=== PATIENT | male | born 1940 | race Caucasian/White ===

== ENCOUNTER → 2016-12-29 | Day surgery (SDC) | payer MEDICARE, BC ==
[~2016-12-29] VITALS: Ht 177.8 cm; Wt 77.1 kg
[~2016-12-29] MED LIST: ASPI-COR81 M1 PO; CLARITIN10 MG PO; FLONASE0.05 MG/AC NS; HYDRODIURIL25 MG PO; KLOR-CON M2020 MEQ PO; LISINOPRIL10 MG PO; SIMVASTATIN20 MG PO
--- NOTE | ~2016-12-29 | O ---
[place], [place] OPERATIVE NOTE NAME: BUSHRACONOR Brenton UNIT #: [id number] ROOM: DOCTOR: SAHRA NOE MD BIRTHDATE: [birth year] DATE: 12/29/16 GASTROENDOSCOPIC REPORT HISTORY OF PRESENT ILLNESS: A 76-year-old patient who presented with chief complaint of history of colon polyp, change in bowel habit, undergoing investigation. ALLERGIES: IODINE. PAST MEDICAL HISTORY: Hypertension, hypercholesterolemia. PAST SURGICAL HISTORY: Right inguinal hernia repair. PROCEDURE: Today's procedure part of investigation is colonoscopy plus polypectomy x 2. PREMEDICATION: Versed and Diprivan. SCOPE: Olympus forward viewed colonoscope 10L video. REPORT: After putting the patient in the left lateral position and after application of lubricant to rectal pouch and digital examination, the scope was introduced. Thereafter, under direct visualization, I advanced through the length of colon without difficulty. Base of the cecum explored, appendiceal orifice identified, and ileocecal valve was defined. Scope was gradually withdrawn from ascending, transverse, descending colon and evidence of severe diverticulosis, coli throughout the length of colon appreciated, sessile polypoid lesion and the hepatic flexure. Sessile polypoid lesion, rectal pouch with piecemeal polypectomy removed. The patient extubated, tolerated procedure well. IMPRESSION: Diverticulosis coli of severe degree. Sessile polypoid lesion, hepatic flexure and rectal pouch, status post piecemeal polypectomy. PLAN AND DISCUSSION: High fiber fruit diet. ACTIVITY: Ad kailash. FOLLOWUP: Routinely with you in office, p.r.n. visit with us in GI Clinic. [place], [place] OPERATIVE NOTE NAME: BUSHRACONOR Brenton UNIT #: [id number] ROOM: DOCTOR: SAHRA NOE MD BIRTHDATE: [birth year] SAHRA NOE MD CM:OPRECORD:OPERATIVE NOTE 1019 [id number] SAHRA NOE MD 01/03/17 0905 CHRIS [email or web address]
--- NOTE | ~2016-12-29 | OP ---
[place], [place] OUTPATIENT NOTE NAME: CONOR TOMLINSON Brenton UNIT #: [id number] ROOM: DOCTOR: SAHRA NOE MD BIRTHDATE: [birth year] DATE: 12/29/16 GASTROENDOSCOPIC REPORT HISTORY OF PRESENT ILLNESS: A 76-year-old patient who presented with chief complaint of history of colon polyp, change in bowel habit, undergoing investigation. ALLERGIES: IODINE. PAST MEDICAL HISTORY: Hypertension, hypercholesterolemia. PAST SURGICAL HISTORY: Right inguinal hernia repair. PROCEDURE: Today's procedure part of investigation is colonoscopy plus polypectomy x 2. PREMEDICATION: Versed and Diprivan. SCOPE: Olympus forward viewed colonoscope 10L video. REPORT: After putting the patient in the left lateral position and after application of lubricant to rectal pouch and digital examination, the scope was introduced. Thereafter, under direct visualization, I advanced through the length of colon without difficulty. Base of the cecum explored, appendiceal orifice identified, and ileocecal valve was defined. Scope was gradually withdrawn from ascending, transverse, descending colon and evidence of severe diverticulosis, coli throughout the length of colon appreciated, sessile polypoid lesion and the hepatic flexure. Sessile polypoid lesion, rectal pouch with piecemeal polypectomy removed. The patient extubated, tolerated procedure well. IMPRESSION: Diverticulosis coli of severe degree. Sessile polypoid lesion, hepatic flexure and rectal pouch, status post piecemeal polypectomy. PLAN AND DISCUSSION: High fiber fruit diet. ACTIVITY: Ad kailash. FOLLOWUP: Routinely with you in office, p.r.n. visit with us in GI Clinic. [place], [place] OUTPATIENT NOTE NAME: YOLANDACONOR MUÑOZ UNIT #: [id number] ROOM: DOCTOR: SAHRA NOE MD BIRTHDATE: [birth year] SAHRA NOE MD CM:OUTNOTE:OUTPATIENT NOTE 1019 1019 SAHRA NOE MD 01/03/17 0905 CHRIS [email or web address]
[2016-12-29 09:10] VITALS: BP 127/90
[2016-12-29 10:16] VITALS: BP 112/66
[2016-12-29 10:31] VITALS: BP 126/70
[2016-12-29 10:46] VITALS: BP 142/82
== END | disposition home or self-care (01) ==
LOC: SDC 12-27 08:00
DX: D12.8 Benign neoplasm of rectum (principal); K63.5 Polyp of colon; I10 Essential (primary) hypertension; E78.00 Pure hypercholesterolemia, unspecified; Z98.890 Other specified postprocedural states; Z82.49 Family history of ischemic heart disease and other diseases of the circulatory system

== ENCOUNTER 2017-09-06 15:17 | Inpatient (IN) | payer MEDICARE, BC ==
[2017-09-06] VITALS (16 sets, daily range): BP systolic 88–119; BP diastolic 50–72
[~2017-09-06] VITALS: Ht 180.3 cm; Wt 74.9 kg
--- NOTE | ~2017-09-06 | CON ---
[place], [place] REPORT OF CONSULTATION NAME: CONOR TOMLINSON UNIT #: [id number] ROOM: [facility] DOCTOR: JD BAUTISTA,ANNE BIRTHDATE: [birth year] DOS: 09/06/2017 REASON FOR CONSULTATION: Atrial fibrillation. CLINICAL HISTORY: The patient is a 77-year-old gentleman with history of hypertension, presented to the Emergency Room with heart palpitations and noted to be in atrial fibrillation in the Emergency Room and was treated appropriately and has been admitted to the hospital and Cardiology consult for further recommendations. Again, the patient presented to the Emergency Room for heart palpitations, which started about an hour before coming to the Emergency Room. He had similar episode several months ago, but resolved after 1 hour. This time it persisted over 1 hour and he came to the Emergency Room. He denies any associated nausea, dizziness or syncope, no diaphoresis. No chest pain, palpitations. No PND, no orthopnea. He does not drink excessive caffeine at home. No fever or chills. No hemoptysis. No hematuria or dysuria. No headache. No blurred vision or double vision. REVIEW OF SYSTEMS: Review of the 8 systems negative except as mentioned above. PAST MEDICAL HISTORY: 1. Hypertension. 2. Dyslipidemia. 3. Prediabetes. PAST SURGICAL HISTORY: Tonsillectomy and hernia repair. SOCIAL HISTORY: The patient drinks social alcohol, but does not use illicit drugs, does not smoke. FAMILY HISTORY: Father at the age of 80, had congestive heart failure and mouth cancer. Mother at the age of 93. ALLERGIES: THE PATIENT IS ALLERGIC TO IVP DYE. HOME MEDICATIONS: Reviewed. PHYSICAL EXAMINATION: VITAL SIGNS: Blood pressure 126/77, pulse 66, respiratory rate was 15, weight 74.9 kilos. BMI 23. GENERAL: Alert, comfortable, in no acute distress. HEAD AND NECK: Neck supple, no distended neck veins, no carotid bruit. Tongue was moist and pharynx was clear. CHEST: Symmetrical, nontender. LUNGS: Clear to auscultation bilaterally. HEART: Regular rhythm, no S3, no palpable thrills. Grade 1/6 systolic murmur. ABDOMEN: Benign, nontender. Bowel sounds normal. EXTREMITIES: Showed no edema. Distal pulses are palpable. SKIN: Warm and dry. No cyanosis, no clubbing. RECTAL: Deferred. GENITOURINARY: Deferred. [place], [place] REPORT OF CONSULTATION NAME: CONOR TOMLINSON UNIT #: [id number] ROOM: [facility] DOCTOR: JD BAUTISTA,ANNE BIRTHDATE: [birth year] REVIEW OF THE DIAGNOSTIC TESTS: EKG showed atrial fibrillation with rapid ventricular rate. CBC, chemistry and thyroid function tests reviewed. IMAGING STUDIES: Reviewed as available. IMPRESSION: 1. New onset atrial fibrillation with rapid ventricular rate, CHADS2-VASC score of 3. Patient is currently in sinus rhythm and off IV Cardizem. 2. Hypertension, stable. 3. Dyslipidemia. RECOMMENDATIONS: The patient is clinically feeling better, has no signs of acute heart failure. Risks and benefits of anticoagulation therapy were discussed and given the options of Coumadin versus NOACs. He would like to Eliquis 5 mg twice a day. The patient understands bleeding risk as well as the cost of the medication. Check 2D echo for LV function, valvular function and also to rule out intracardiac thrombus. Lexiscan stress to rule out ischemia due to new-onset atrial fibrillation. Possible discharge in the next 24 hours. Patient can be transferred to step-down unit to telemetry floor. There is no family at bedside at the time of my examination. ANNE MILES MD CM:CONSTR:REPORT OF CONSULTATION 0058 09/08/17 0229 interface
--- NOTE | ~2017-09-06 | EKG ---
[place], [place] ELECTROCARDIOGRAM REPORT NAME: CONOR TOMLINSON UNIT #: [id number] ROOM: [facility] DOCTOR: JD BAUTISTA,ANNE BIRTHDATE: [birth year] DOS: 09/06/2017 TIME: 1530 hours. IMPRESSION: 1. Atrial fibrillation with rapid ventricular rate. 2. Nonspecific ST-T changes due to tachycardia. 3. Baseline artifacts. ANNE MILES MD CM:EKGRPT:ELECTROCARDIOGRAM REPORT 1405 1733 ANNE MILES MD
[~2017-09-06 15:17] MED LIST changes: +HYDR25T PO; -HYDRODIURIL25 MG PO
[2017-09-06 15:54] LABS: BASO # 0.1 10*3/uL (0.0-0.1); BASO % 0.6 % (0.0-1.0); EOS # 0.2 10*3/uL (0.0-0.4); EOS % 2.1 % (1.0-4.0); HEMATOCRIT 41.9 % (42.0-52.0); HEMOGLOBIN 14.4 g/dl (14.0-18.0); LYMPH # 1.4 10*3/uL (1.3-4.4); LYMPH % 16.7 % (27.0-41.0); MEAN CELL VOLUME 84.8 fl (80.0-94.0); MEAN CORPUSCULAR HGB 29.1 pg (27.0-31.0); MEAN CORPUSCULAR HGB CONC 34.4 g/dl (33.0-37.0); MEAN PLATELET VOLUME 9.2 fl (9.6-12.3); MONO # 0.8 10*3/uL (0.1-1.0); MONO % 9.2 % (3.0-9.0); NEUT # 5.9 10*3/uL (2.3-7.9); NEUT % 71.2 % (47.0-73.0); PLATELET COUNT AUTOMATED 210 10*3/uL (130-400); RED BLOOD COUNT 4.94 10*6/uL (4.50-5.90); RED CELL DISTRI WIDTH 12.6 % (0-14.5); WHITE BLOOD COUNT 8.2 10*3/uL (4.8-10.8)
[2017-09-06 16:11] LABS: ALBUMIN 3.8 gm/dl (3.1-4.5); ALKALINE PHOSPHATASE 58 U/L (45-117); BUN 18 mg/dl (7-24); CHLORIDE 107 mmol/L (98-107); CREATININE 0.97 mg/dL (0.70-1.30); LIPASE 157 U/L (73-393); POTASSIUM 3.3 mmol/L (3.5-5.1); SGOT/AST 14 IU/L (3-35); SODIUM 141 mmol/L (136-145); TOTAL PROTEIN 6.8 gm/dL (6.4-8.2)
[2017-09-06 16:12] LABS: ACT PARTIAL THROMBO TIME 24.2 SECONDS (20.8-31.5)
[2017-09-06 16:15] LABS: SGPT/ALT 21 U/L (12-78)
[2017-09-06 16:18] LABS: TROPONIN I < 0.015 ng/ml (<0.045)
[2017-09-06] MEDS ORDERED: OMEPRAZOLE40 MG PO (18:20)
[2017-09-06] MEDS ORDERED: SINGULAIR10 M1 PO (18:21)
[2017-09-06] MEDS ORDERED: FLONASE ALLERG9.9 ML NAS (18:21)
[2017-09-06] MEDS ORDERED: ZESTRIL10 MG PO (18:22)
[2017-09-06] MEDS ORDERED: KLOR-CON M2020 ME1 PO (18:23)
[2017-09-06] MEDS ORDERED: ZOCOR20 MG PO (18:23)
[2017-09-06] MEDS ORDERED: ASPIRIN ADULT L81 M1 PO (18:24)
[2017-09-07] VITALS: BP 105/69
[2017-09-07 04:00] VITALS: BP 98/50
[2017-09-07 05:36] LABS: ALBUMIN 3.2 gm/dl (3.1-4.5); ALKALINE PHOSPHATASE 48 U/L (45-117); BUN 17 mg/dl (7-24); CHLORIDE 108 mmol/L (98-107); CHOLESTEROL 128 mg/dL (<200); CREATININE 0.78 mg/dL (0.70-1.30); FREE T4 1.12 ng/dl (0.76-1.46); HDL CHOLESTEROL 65 mg/dl (40-60); LDL CHOLESTEROL 49 mg/dL (9-159); PHOSPHOROUS 3.3 mg/dL (2.5-4.9); POTASSIUM 3.9 mmol/L (3.5-5.1); SGOT/AST 14 IU/L (3-35); SGPT/ALT 19 U/L (12-78); SODIUM 143 mmol/L (136-145); TOTAL PROTEIN 5.8 gm/dL (6.4-8.2); TRIGLYCERIDES 70 mg/dl (<150); VLDL CHOLESTEROL 14 mg/dL (6-40)
[2017-09-07 06:10] LABS: BASO % 0.7 % (0.0-1.0); EOS # 0.3 10*3/uL (0.0-0.4); EOS % 5.2 % (1.0-4.0); HEMATOCRIT 39.5 % (42.0-52.0); LYMPH # 1.5 10*3/uL (1.3-4.4); LYMPH % 26.7 % (27.0-41.0); MEAN CORPUSCULAR HGB CONC 32.9 g/dl (33.0-37.0); MEAN PLATELET VOLUME 9.9 fl (9.6-12.3); MONO # 0.6 10*3/uL (0.1-1.0); MONO % 11.1 % (3.0-9.0); NEUT # 3.1 10*3/uL (2.3-7.9); NEUT % 55.9 % (47.0-73.0); PLATELET COUNT AUTOMATED 188 10*3/uL (130-400); RED BLOOD COUNT 4.49 10*6/uL (4.50-5.90); RED CELL DISTRI WIDTH 12.8 % (0-14.5); WHITE BLOOD COUNT 5.6 10*3/uL (4.8-10.8)
[2017-09-07 07:43] LABS: VITAMIN D, 25-HYDROXY 31.2 ng/mL (30-100)
[2017-09-07 08:00] VITALS: BP 126/77
[2017-09-07 16:00] VITALS: BP 137/78
[2017-09-07 20:00] VITALS: BP 130/82
[2017-09-08] VITALS: BP 118/88
[2017-09-08 04:00] VITALS: BP 135/77
[2017-09-08 08:00] VITALS: BP 160/79
[2017-09-08] MEDS ORDERED: METFORMIN HCL500 MG PO (10:38)
[2017-09-08 12:00] VITALS: BP 158/72
[2017-09-08] MEDS ORDERED: ELIQUIS5 M1 PO (13:46)
== END 2017-09-08 14:40 | disposition home or self-care (01) | DRG 309 ==
LOC: ED 15:17 → ICCU 16:26 → EDHOLD 16:26 → ICCU 17:21
PROVIDERS: Emergency Medicine; Internal Medicine
PROC: 4A02XM4 Measurement of Cardiac Total Activity, External Approach (ICD-10-PCS; principal; 2017-09-07)
PROC: 3E073KZ Introduction of Other Diagnostic Substance into Coronary Artery, Percutaneous Approach (ICD-10-PCS; 2017-09-07)
DX: I48.91 Unspecified atrial fibrillation (principal); R65.10 Systemic inflammatory response syndrome (SIRS) of non-infectious origin without acute organ dysfunction; I95.9 Hypotension, unspecified; D72.810 Lymphocytopenia; E87.6 Hypokalemia; I10 Essential (primary) hypertension; E78.5 Hyperlipidemia, unspecified; Z80.8 Family history of malignant neoplasm of other organs or systems; Z82.49 Family history of ischemic heart disease and other diseases of the circulatory system; Z91.041 Radiographic dye allergy status; Z79.899 Other long term (current) drug therapy

== ENCOUNTER 2017-09-10 17:38 | Emergency (ER) | payer MEDICARE, BC ==
[~2017-09-10] VITALS: Ht 182.8 cm; Wt 86.2 kg
[~2017-09-10 17:38] MED LIST changes: +ASPIRIN ADULT L81 M1 PO; +ELIQUIS5 M1 PO; +FLONASE ALLERG9.9 ML NAS; +KLOR-CON M2020 ME1 PO; +METFORMIN HCL500 MG PO; +OMEPRAZOLE40 MG PO; +SINGULAIR10 M1 PO; +ZESTRIL10 MG PO; +ZOCOR20 MG PO
== END 2017-09-10 19:55 | disposition home or self-care (01) ==
LOC: ED 17:38
DX: S01.512A Laceration without foreign body of oral cavity, initial encounter (principal); D68.9 Coagulation defect, unspecified; I48.91 Unspecified atrial fibrillation; E78.5 Hyperlipidemia, unspecified; I10 Essential (primary) hypertension; E11.9 Type 2 diabetes mellitus without complications; Z91.041 Radiographic dye allergy status; Z79.899 Other long term (current) drug therapy; X58.XXXA Exposure to other specified factors, initial encounter; Y93.89 Activity, other specified; Y92.89 Other specified places as the place of occurrence of the external cause; Y99.8 Other external cause status

== ENCOUNTER 2018-02-13 18:29 | Inpatient (IN) | payer MEDICARE, BC ==
[~2018-02-13] VITALS: Ht 180.3 cm; Wt 80.5 kg
[2018-02-13] VITALS (10 sets, daily range): BP systolic 95–126; BP diastolic 52–69
--- NOTE | ~2018-02-13 | CON ---
[place], [place] REPORT OF CONSULTATION NAME: CONOR TOMLINSON REDWOOD LLCT #: [id number] UNIT #: [id number] ROOM: 505 DOCTOR: THERESE BRAGG MD BIRTHDATE: [birth year] DOS: 02/14/2018 HISTORY OF PRESENT ILLNESS: The patient 78-year-old man who is otherwise healthy and has no previous history of ischemic or structural heart disease. He presented in late August 2017 with new onset atrial fibrillation and converted spontaneously to sinus rhythm. An echocardiogram showed mild left ventricular hypertrophy, but was an otherwise normal study. A pharmacologic stress test showed no evidence for ischemia and was also low risk. The patient was observed and did well until yesterday. While doing some paperwork at home, he noticed an unusual sensation in his chest, which he recognized as being atrial fibrillation. He rested for an hour or so, but it did not go away, so he came into the emergency room where he was found to have atrial fibrillation with a rapid ventricular response. Pulse initially was 150. He was placed on diltiazem and his heart rate slowed. He then converted to sinus rhythm around midnight. He now feels well and is anxious for discharge. PAST MEDICAL HISTORY: Includes 1. Essential hypertension. 2. Newly documented atrial fibrillation 09/06/2017. The patient spontaneously converted to sinus rhythm. 3. History of palpitations, which may represent atrial fibrillation in mid 2016. 4. No previous history of myocardial infarction or stroke. 5. Echocardiogram 09/07/2017. Mild left ventricular hypertrophy with mild left atrial enlargement, mild mitral insufficiency, mild tricuspid insufficiency, normal wall motion and systolic function with ejection fraction 65%. 6. Lexiscan pharmacologic myocardial perfusion study 09/07/2017 apical thinning, which is a normal variation. Ejection fraction 65%, no ischemia, low risk exam. 7. Type 2 diabetes mellitus, on oral medications. REVIEW OF SYSTEMS: The patient denies diplopia or loss of vision. He denies any focal weakness. He denies lightheadedness or syncope. Denies fevers, chills, sweats or recent weight change. He denies orthopnea or PND. He denies any dyspnea, cough, or hemoptysis. He denies any hematemesis. He denies any chest pain. He denies any change in bowel or bladder habits and denies blood in his urine or stools. He denies any dysuria. He denies any skin rashes. He denies heat or cold intolerance. He denies any new musculoskeletal pains. He does not have any major anxiety or depression. Remainder of the review of systems is negative except as noted above. FAMILY HISTORY: His father of mouth cancer and heart failure at age 80. His mother at age 93 of unknown causes. MEDICATIONS: Prior to admission, apixaban 5 mg b.i.d., fluticasone 2 sprays in the nose daily, guaifenesin 600 mg b.i.d. p.r.n., hydrochlorothiazide 25 mg daily, lisinopril 5 mg daily, metformin 500 mg b.i.d., Singulair 10 mg at bedtime, potassium 20 mEq daily and simvastatin 20 mg at bedtime. ALLERGIES: He lists an allery to IVP DYE. 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 He does not smoke or consume alcohol. PHYSICAL EXAMINATION: GENERAL: The patient is well-nourished white male who looks younger than his stated age. VITAL SIGNS: Pulse is 70 and regular, blood pressure 120/77. He is afebrile. He weighs 80.5 kg and has a body mass index 24.8. HEENT: Normocephalic, atraumatic. Extraocular muscles are intact. Sclerae are clear. Pupils equal, round and react to light. The oral mucosa is moist. Tongue is midline. NECK: Supple. He has no jugular distention. Carotids are full. He has no bruits. He has no neck or supraclavicular masses. LUNGS: Respirations are unlabored. His chest is clear to auscultation and percussion. He has no presacral edema or chest wall tenderness. CARDIOVASCULAR: His heart has a regular rhythm with an S4 gallop and no S3 or murmur. The PMI is not displaced. He has no precordial heave, lift or thrill. ABDOMEN: Soft and normally active without masses, organomegaly or bruits. EXTREMITIES: Showed no edema. Peripheral pulses are easily palpated in the feet bilaterally. LABORATORY DATA: I reviewed his electrocardiograms, which showed atrial fibrillation with a rapid ventricular response, but no acute ST or T-wave changes. IMPRESSION: 1. Paroxysmal atrial fibrillation, recurrent. The patient did convert spontaneously to sinus rhythm. 2. Essential hypertension. 3. Type 2 diabetes mellitus. 4. No history of structural or ischemic heart disease. PLAN: I discussed with the patient and his that he does have several options. We could continue to just observe him until his next episode, start him on a daily antiarrhythmic drug, start him on a daily dose of rate lowering drug, or consider "pill in the pocket" regimen. I think of all of the options this is the most attractive. If the patient does go into atrial fibrillation again what he would need to do would be to take 160 mg diltiazem tablet orally. A half hour later if he is still in atrial fibrillation, he would take 100 mg of flecainide p.o. If he is still in atrial fibrillation an hour later that he would come to the emergency room. Hopefully, this would be an effective regimen for him and appropriate since he has very few episodes of atrial fibrillation. I have discussed this with him and he has agreed to proceed with that. I think he can be discharged to home. Otherwise, we will follow up with him in the office in the next few weeks. I thank Dr. Krishnamurthy and the hospitalist physicians for asking our advice regarding his care. [place], [place] REPORT OF CONSULTATION NAME: YOLANDAWANDACONOR REDWOOD LLCT #: [id number] UNIT #: [id number] ROOM: [facility] DOCTOR: THERESE BRAGG MD BIRTHDATE: [birth year] THERESE BRAGG MD CM:CONSTR:REPORT OF CONSULTATION 1007 02/15/18 1134 interface
[2018-02-13 18:47] LABS: BASO # 0.1 10*3/uL (0.0-0.1); BASO % 0.6 % (0.0-1.0); EOS # 0.2 10*3/uL (0.0-0.4); EOS % 2.2 % (1.0-4.0); HEMATOCRIT 44.8 % (42.0-52.0); HEMOGLOBIN 15.2 g/dl (14.0-18.0); LYMPH # 1.2 10*3/uL (1.3-4.4); LYMPH % 15.6 % (27.0-41.0); MEAN CELL VOLUME 86.7 fl (80.0-94.0); MEAN CORPUSCULAR HGB 29.4 pg (27.0-31.0); MEAN CORPUSCULAR HGB CONC 33.9 g/dl (33.0-37.0); MEAN PLATELET VOLUME 9.1 fl (9.6-12.3); MONO # 0.9 10*3/uL (0.1-1.0); MONO % 11.6 % (3.0-9.0); NEUT # 5.4 10*3/uL (2.3-7.9); NEUT % 69.7 % (47.0-73.0); PLATELET COUNT AUTOMATED 222 10*3/uL (130-400); RED BLOOD COUNT 5.17 10*6/uL (4.50-5.90); WHITE BLOOD COUNT 7.8 10*3/uL (4.8-10.8)
[2018-02-13 18:57] LABS: ACT PARTIAL THROMBO TIME 24.3 SECONDS (20.8-31.5); INTERNATIONAL NORM RATIO 0.9 (2.0-3.5)
[2018-02-13 19:09] LABS: ALBUMIN 3.7 gm/dl (3.1-4.5); ALKALINE PHOSPHATASE 63 U/L (45-117); BUN 11 mg/dl (7-24); CHLORIDE 104 mmol/L (98-107); CREATININE 0.89 mg/dL (0.70-1.30); POTASSIUM 3.9 mmol/L (3.5-5.1); SGOT/AST 21 IU/L (3-35); SGPT/ALT 23 U/L (12-78); SODIUM 139 mmol/L (136-145); TOTAL PROTEIN 7.1 gm/dL (6.4-8.2)
[2018-02-13 19:10] LABS: TROPONIN I < 0.015 ng/ml (<0.045)
[2018-02-13] MEDS ORDERED: GUAIFENESIN600 MG PO (22:31)
[2018-02-14] VITALS: BP 104/73
[2018-02-14 00:21] VITALS: BP 104/73
[2018-02-14 02:10] VITALS: BP 96/58
[2018-02-14 04:00] VITALS: BP 105/66
[2018-02-14 06:20] LABS: BASO # 0.1 10*3/uL (0.0-0.1); BASO % 0.8 % (0.0-1.0); EOS # 0.2 10*3/uL (0.0-0.4); EOS % 2.6 % (1.0-4.0); HEMATOCRIT 43.9 % (42.0-52.0); HEMOGLOBIN 14.6 g/dl (14.0-18.0); LYMPH # 1.5 10*3/uL (1.3-4.4); LYMPH % 24.2 % (27.0-41.0); MEAN CELL VOLUME 87.3 fl (80.0-94.0); MEAN CORPUSCULAR HGB CONC 33.3 g/dl (33.0-37.0); MEAN PLATELET VOLUME 9.4 fl (9.6-12.3); MONO # 0.7 10*3/uL (0.1-1.0); MONO % 11.8 % (3.0-9.0); NEUT # 3.8 10*3/uL (2.3-7.9); NEUT % 60.3 % (47.0-73.0); PLATELET COUNT AUTOMATED 216 10*3/uL (130-400); RED BLOOD COUNT 5.03 10*6/uL (4.50-5.90); RED CELL DISTRI WIDTH 13.2 % (0-14.5); WHITE BLOOD COUNT 6.3 10*3/uL (4.8-10.8)
[2018-02-14 06:44] LABS: BUN 10 mg/dl (7-24); CHLORIDE 103 mmol/L (98-107); CHOLESTEROL 156 mg/dL (<200); CREATININE 0.75 mg/dL (0.70-1.30); HDL CHOLESTEROL 68 mg/dl (40-60); LDL CHOLESTEROL 76 mg/dL (9-159); POTASSIUM 3.4 mmol/L (3.5-5.1); SODIUM 141 mmol/L (136-145); TRIGLYCERIDES 62 mg/dl (<150); VLDL CHOLESTEROL 12 mg/dL (6-40)
[2018-02-14 08:00] VITALS: BP 121/77
[2018-02-14 11:26] LABS: VITAMIN D, 25-HYDROXY 25.8 ng/mL (30-100)
[2018-02-14 12:00] VITALS: BP 111/80
[2018-02-14] MEDS ORDERED: FLECAINIDE ACE100 M1 PO (13:32)
[2018-02-14] MEDS ORDERED: DILTIAZEM60 MG PO (13:32)
== END 2018-02-14 14:19 | disposition home or self-care (01) | DRG 309 ==
LOC: ED 18:29 → EDHOLD 18:56 → 5E 18:56
PROVIDERS: Internal Medicine Nephrology; Nurse Practitioner Family
DX: I48.0 Paroxysmal atrial fibrillation (principal); R65.10 Systemic inflammatory response syndrome (SIRS) of non-infectious origin without acute organ dysfunction; D68.59 Other primary thrombophilia; E11.65 Type 2 diabetes mellitus with hyperglycemia; D72.810 Lymphocytopenia; E78.5 Hyperlipidemia, unspecified; I10 Essential (primary) hypertension; R00.0 Tachycardia, unspecified; E87.6 Hypokalemia; E55.9 Vitamin D deficiency, unspecified; Z82.49 Family history of ischemic heart disease and other diseases of the circulatory system; Z91.041 Radiographic dye allergy status; Z80.0 Family history of malignant neoplasm of digestive organs; Z79.84 Long term (current) use of oral hypoglycemic drugs; Z79.899 Other long term (current) drug therapy; Z85.46 Personal history of malignant neoplasm of prostate; Z79.01 Long term (current) use of anticoagulants

== ENCOUNTER 2018-05-22 04:11 | Emergency (ER) | payer MEDICARE, BC ==
[~2018-05-22] VITALS: Ht 180.3 cm; Wt 73.5 kg
--- NOTE | ~2018-05-22 | EKG ---
[place], [place] ELECTROCARDIOGRAM REPORT NAME: CONOR TOMLINSON UNIT #: [id number] ROOM: DOCTOR: EPIPHANY DRAFT REPORT BIRTHDATE: [birth year] [facility] Test Date: 2018-05-22 Test Time: 04:21:37 Pat Name: CONOR TOMLINSON Department: Room: Gender: Transcriber: [facility] : 1940 Requested By: CHYNA PIERRE Order Number: [id number] Reading MD: Saman Floyd MD Measurements Intervals [place] Rate: 94 P: 45 ND: 185 QRS: 48 QRSD: 101 T: 34 QT: 343 QTc: 429 Interpretive Statements Sinus rhythm Abnormal inferior Q waves Electronically Signed On 05-24-2018 13:29:47 PDT by Saman Floyd MD CM:EKGRPT:ELECTROCARDIOGRAM REPORT 0421 1329 CHYNA SCHAEFFER DRAFT REPORT CHYNA PIERRE DO
[~2018-05-22 04:11] MED LIST changes: +DILTIAZEM60 MG PO; +FLECAINIDE ACE100 M1 PO; +GUAIFENESIN600 MG PO
[2018-05-22 04:30] LABS: BASO # 0.1 10*3/uL (0.0-0.1); BASO % 0.4 % (0.0-1.0); EOS # 0.2 10*3/uL (0.0-0.4); EOS % 1.5 % (1.0-4.0); HEMATOCRIT 46.2 % (42.0-52.0); HEMOGLOBIN 15.4 g/dl (14.0-18.0); LYMPH # 1.4 10*3/uL (1.3-4.4); LYMPH % 12.8 % (27.0-41.0); MEAN CELL VOLUME 87.7 fl (80.0-94.0); MEAN CORPUSCULAR HGB 29.2 pg (27.0-31.0); MEAN CORPUSCULAR HGB CONC 33.3 g/dl (33.0-37.0); MEAN PLATELET VOLUME 9.4 fl (9.6-12.3); MONO # 1.1 10*3/uL (0.1-1.0); MONO % 10.1 % (3.0-9.0); NEUT # 8.4 10*3/uL (2.3-7.9); NEUT % 74.7 % (47.0-73.0); PLATELET COUNT AUTOMATED 223 10*3/uL (130-400); RED BLOOD COUNT 5.27 10*6/uL (4.50-5.90); RED CELL DISTRI WIDTH 12.6 % (0-14.5); WHITE BLOOD COUNT 11.3 10*3/uL (4.8-10.8)
[2018-05-22 04:42] LABS: ACT PARTIAL THROMBO TIME 25.2 SECONDS (20.8-31.5); INTERNATIONAL NORM RATIO 0.9 (2.0-3.5)
[2018-05-22 04:50] LABS: ALKALINE PHOSPHATASE 63 U/L (45-117); BUN 11 mg/dl (7-24); CHLORIDE 103 mmol/L (98-107); CREATININE 0.87 mg/dL (0.70-1.30); POTASSIUM 3.2 mmol/L (3.5-5.1); SGOT/AST 16 IU/L (3-35); SGPT/ALT 20 U/L (12-78); SODIUM 136 mmol/L (136-145); TOTAL PROTEIN 7.4 gm/dL (6.4-8.2); TROPONIN I < 0.015 ng/ml (<0.045)
== END 2018-05-22 05:26 | disposition home or self-care (01) ==
LOC: ED 04:11
PROVIDERS: Student in an Organized Health Care Education/Training Program
DX: R00.2 Palpitations (principal); R07.9 Chest pain, unspecified; I10 Essential (primary) hypertension; I48.91 Unspecified atrial fibrillation; E11.9 Type 2 diabetes mellitus without complications; E78.5 Hyperlipidemia, unspecified; Z91.041 Radiographic dye allergy status; Z79.899 Other long term (current) drug therapy; Z87.891 Personal history of nicotine dependence

== ENCOUNTER → 2019-06-13 | Day surgery (SDC) | payer MEDICARE, BC ==
[~2019-06-13] VITALS: Ht 177.8 cm; Wt 77.1 kg
--- NOTE | ~2019-06-13 | O ---
[place], [place] OPERATIVE NOTE NAME: CONOR TOMLINSON UNIT #: [id number] ROOM: DOCTOR: JACQUES PEREZ MD BIRTHDATE: [birth year] DOS: 06/13/2019 PREOPERATIVE DIAGNOSIS: Cataract, right eye. POSTOPERATIVE DIAGNOSIS: Cataract, right eye. OPERATION: Extracapsular cataract extraction by phacoemulsification with posterior chamber intraocular lens implantation, right eye. ANESTHESIA: Monitored standby. OPERATIVE FINDINGS AND PROCEDURE: 2% Xylocaine topical anesthetic gel was applied to the eye in the preop area. The patient was taken to the operating room and prepped and draped in the standard fashion for sterile intraocular surgery. A time out procedure was performed verifying correct patient, correct site and corrects lens with Enid Perez M.D. The operating microscope was swung into position and the lid speculum was inserted. Using a Yessy paracentesis blade, a paracentesis was made through clear cornea. Viscoelastic was used to fill the anterior chamber. Using a metal keratome a 2.4 mm self-sealing clear corneal cataract incision was made temporally at the limbus. Using a pre-bent 25 gauge cystotome needle, a standard continuous curvilinear capsulorrhexis was performed. The anterior capsule was removed with forceps. The lens nucleus was hydrodissected and phacoemulsified in the posterior chamber. Cortical material was removed with the irrigation aspiration hand piece and the posterior capsule was then polished with a curet under irrigation. The posterior chamber and capsular bag were filled with viscoelastic. A posterior chamber intraocular lens manufactured by: [employer], Model AU00T0 and 18.0 diopters in strength were then inserted into the posterior chamber and within the capsular bag using the lens cartridge and injector system. Viscoelastic was removed using the irrigation aspiration handpiece. The anterior chamber was filled with balanced salt solution through the paracentesis. Both the paracentesis site and cataract incisions were hydrated with BSS and verified to be water-tight and self-sealing. Cefuroxime 1 mg/0.1 mL was injected into the anterior chamber through the paracentesis site. The incision checked to be water-tight using a Weck-Candace sponge. The integrity of the cataract wound and ocular tension were checked. Lid speculum and drapes were removed. The patient was transferred from the operating room to the recovery room in satisfactory condition. [place], [place] OPERATIVE NOTE NAME: CONOR TOMLINSON UNIT #: [id number] ROOM: DOCTOR: JACQUES PEREZ MD BIRTHDATE: [birth year] JACQUES PEREZ MD CM:OPRECORD:OPERATIVE NOTE 1014 1054 JACQUES PEREZ MD 06/13/19 1053 interface
[2019-06-13 08:27] VITALS: BP 128/82
[2019-06-13 10:02] VITALS: BP 113/66
[2019-06-13 10:32] VITALS: BP 118/73
== END | disposition home or self-care (01) ==
LOC: SDC 05-10 08:00
DX: H25.9 Unspecified age-related cataract (principal); E11.36 Type 2 diabetes mellitus with diabetic cataract; I10 Essential (primary) hypertension; E78.5 Hyperlipidemia, unspecified; E78.00 Pure hypercholesterolemia, unspecified; I48.91 Unspecified atrial fibrillation; Z91.041 Radiographic dye allergy status; Z85.46 Personal history of malignant neoplasm of prostate; Z79.899 Other long term (current) drug therapy; Z98.890 Other specified postprocedural states; Z79.01 Long term (current) use of anticoagulants; Z82.49 Family history of ischemic heart disease and other diseases of the circulatory system

== ENCOUNTER → 2020-10-13 | Outpatient (CLI) | payer MEDICARE, OTHER ==
[~2020-10-13] MED LIST changes: +COLACE100 MG PO; -GUAIFENESIN600 MG PO; +MUCUS RELIEF600 MG PO; +PERCOCET 5-3251 EACH PO; +ZOFRAN4 MG PO
== END | disposition home or self-care (01) ==
LOC: COVID19 12:26
PROVIDERS: ATTEND Surgery
DX: K40.90 Unilateral inguinal hernia, without obstruction or gangrene, not specified as recurrent (principal)

== ENCOUNTER → 2020-10-17 | Day surgery (SDC) | payer MEDICARE, OTHER ==
[2020-10-13 13:45] VITALS: BP 130/78
[2020-10-13 14:43] LABS: BASO % 0.5 % (0.0-1.0); EOS # 0.1 10*3/uL (0.0-0.4); EOS % 1.2 % (1.0-4.0); HEMATOCRIT 43.4 % (42.0-52.0); LYMPH # 1.1 10*3/uL (1.3-4.4); LYMPH % 14.4 % (27.0-41.0); MEAN CELL VOLUME 86.5 fl (80.0-94.0); MEAN CORPUSCULAR HGB 28.3 pg (27.0-31.0); MEAN CORPUSCULAR HGB CONC 32.7 g/dl (33.0-37.0); MEAN PLATELET VOLUME 8.9 fl (9.6-12.3); MONO # 0.8 10*3/uL (0.1-1.0); MONO % 10.6 % (3.0-9.0); NEUT # 5.4 10*3/uL (2.3-7.9); NEUT % 72.9 % (47.0-73.0); PLATELET COUNT AUTOMATED 273 10*3/uL (130-400); RED BLOOD COUNT 5.02 10*6/uL (4.50-5.90); RED CELL DISTRI WIDTH 12.6 % (0-14.5); WHITE BLOOD COUNT 7.4 10*3/uL (4.8-10.8)
[2020-10-13 14:50] LABS: POTASSIUM 3.7 mmol/L (3.5-5.1)
[2020-10-13 14:56] LABS: ACT PARTIAL THROMBO TIME 28.5 SECONDS (20.0-32.1)
[2020-10-17] VITALS (7 sets, daily range): BP systolic 125–151; BP diastolic 67–82
[~2020-10-17] VITALS: Ht 180.3 cm; Wt 68.9 kg
== END | disposition home or self-care (01) ==
LOC: SDC 08-18 11:00 → LAB 08:00 → SDC 13:15 → LAB 13:15
PROVIDERS: ATTEND Surgery
DX: K40.91 Unilateral inguinal hernia, without obstruction or gangrene, recurrent (principal); I10 Essential (primary) hypertension; E11.9 Type 2 diabetes mellitus without complications; E78.00 Pure hypercholesterolemia, unspecified; I48.91 Unspecified atrial fibrillation; Z85.46 Personal history of malignant neoplasm of prostate; Z79.899 Other long term (current) drug therapy

== ENCOUNTER 2021-04-15 20:19 | Emergency (ER) | payer MEDICARE, OTHER ==
[~2021-04-15] VITALS: Ht 180.3 cm; Wt 69.9 kg
[2021-04-15 20:42] LABS: BASO % 0.6 % (0.0-1.0); EOS # 0.2 10*3/uL (0.0-0.4); EOS % 2.4 % (1.0-4.0); HEMATOCRIT 41.9 % (42.0-52.0); LYMPH # 1.3 10*3/uL (1.3-4.4); LYMPH % 17.9 % (27.0-41.0); MEAN CELL VOLUME 85.7 fl (80.0-94.0); MEAN CORPUSCULAR HGB 28.8 pg (27.0-31.0); MEAN CORPUSCULAR HGB CONC 33.7 g/dl (33.0-37.0); MEAN PLATELET VOLUME 9.2 fl (9.6-12.3); MONO # 0.8 10*3/uL (0.1-1.0); MONO % 11.1 % (3.0-9.0); NEUT # 4.8 10*3/uL (2.3-7.9); NEUT % 67.9 % (47.0-73.0); PLATELET COUNT AUTOMATED 264 10*3/uL (130-400); RED BLOOD COUNT 4.89 10*6/uL (4.50-5.90); RED CELL DISTRI WIDTH 12.7 % (0-14.5)
[2021-04-15 21:00] LABS: ALBUMIN 3.7 gm/dl (3.1-4.5); ALKALINE PHOSPHATASE 72 U/L (45-117); BUN 13 mg/dl (7-24); CHLORIDE 103 mmol/L (98-107); POTASSIUM 3.6 mmol/L (3.5-5.1); SGOT/AST 8 IU/L (3-35); SGPT/ALT 15 U/L (12-78); SODIUM 135 mmol/L (136-145); TOTAL PROTEIN 6.8 gm/dL (6.4-8.2)
[2021-04-15 21:04] LABS: TROPONIN I < 0.015 ng/ml (<0.045)
== END 2021-04-15 23:01 | disposition home or self-care (01) ==
LOC: ED 20:19
PROVIDERS: Emergency Medicine
DX: I48.20 Chronic atrial fibrillation, unspecified (principal); Z91.041 Radiographic dye allergy status; Z79.899 Other long term (current) drug therapy; Z90.89 Acquired absence of other organs; Z98.890 Other specified postprocedural states; Z87.891 Personal history of nicotine dependence

== ENCOUNTER 2021-04-28 16:01 | Inpatient (IN) | payer MEDICARE, OTHER ==
[~2021-04-28] VITALS: Ht 180.3 cm; Wt 71.9 kg
[2021-04-28] VITALS (8 sets, daily range): BP systolic 91–111; BP diastolic 51–79
[2021-04-28 17:02] LABS: BASO % 0.5 % (0.0-1.0); EOS # 0.1 10*3/uL (0.0-0.4); EOS % 1.4 % (1.0-4.0); HEMATOCRIT 42.3 % (42.0-52.0); LYMPH % 12.9 % (27.0-41.0); MEAN CELL VOLUME 85.6 fl (80.0-94.0); MEAN CORPUSCULAR HGB 29.4 pg (27.0-31.0); MEAN CORPUSCULAR HGB CONC 34.3 g/dl (33.0-37.0); MONO # 0.9 10*3/uL (0.1-1.0); MONO % 10.7 % (3.0-9.0); NEUT # 5.9 10*3/uL (2.3-7.9); NEUT % 74.4 % (47.0-73.0); PLATELET COUNT AUTOMATED 258 10*3/uL (130-400); RED BLOOD COUNT 4.94 10*6/uL (4.50-5.90); RED CELL DISTRI WIDTH 12.8 % (0-14.5)
[2021-04-28 17:21] LABS: ALBUMIN 3.6 gm/dl (3.1-4.5); ALKALINE PHOSPHATASE 71 U/L (45-117); BUN 16 mg/dl (7-24); CHLORIDE 103 mmol/L (98-107); POTASSIUM 3.8 mmol/L (3.5-5.1); SGOT/AST 10 IU/L (3-35); SGPT/ALT 17 U/L (12-78); SODIUM 135 mmol/L (136-145); TOTAL PROTEIN 6.6 gm/dL (6.4-8.2)
[2021-04-28 17:24] LABS: TROPONIN I < 0.015 ng/ml (<0.045)
[2021-04-29] VITALS: BP 106/57
[2021-04-29 07:46] LABS: BASO % 0.5 % (0.0-1.0); EOS # 0.2 10*3/uL (0.0-0.4); EOS % 2.9 % (1.0-4.0); HEMATOCRIT 38.4 % (42.0-52.0); LYMPH # 1.1 10*3/uL (1.3-4.4); LYMPH % 20.7 % (27.0-41.0); MEAN CELL VOLUME 87.9 fl (80.0-94.0); MEAN CORPUSCULAR HGB 29.1 pg (27.0-31.0); MEAN CORPUSCULAR HGB CONC 33.1 g/dl (33.0-37.0); MEAN PLATELET VOLUME 9.4 fl (9.6-12.3); MONO # 0.7 10*3/uL (0.1-1.0); NEUT # 3.5 10*3/uL (2.3-7.9); NEUT % 63.5 % (47.0-73.0); PLATELET COUNT AUTOMATED 223 10*3/uL (130-400); RED BLOOD COUNT 4.37 10*6/uL (4.50-5.90); RED CELL DISTRI WIDTH 12.9 % (0-14.5); WHITE BLOOD COUNT 5.5 10*3/uL (4.8-10.8)
[2021-04-29 08:00] VITALS: BP 122/70
[2021-04-29 08:07] LABS: ALBUMIN 3.3 gm/dl (3.1-4.5); ALKALINE PHOSPHATASE 60 U/L (45-117); BUN 12 mg/dl (7-24); CHLORIDE 108 mmol/L (98-107); CHOLESTEROL 125 mg/dL (<200); CREATININE 0.59 mg/dL (0.70-1.30); LDL CHOLESTEROL 49 mg/dL (9-159); POTASSIUM 3.6 mmol/L (3.5-5.1); SGOT/AST 8 IU/L (3-35); SGPT/ALT 15 U/L (12-78); SODIUM 139 mmol/L (136-145); TOTAL PROTEIN 5.9 gm/dL (6.4-8.2); TRIGLYCERIDES 66 mg/dl (<150)
[2021-04-29 12:00] VITALS: BP 139/73
[2021-04-29] MEDS ORDERED: METOPROLOL SUCC25 M2 PO (13:52)
== END 2021-04-29 17:45 | disposition home or self-care (01) | DRG 309 ==
LOC: ED 16:01 → 5E 18:07 → EDHOLD 18:07 → 5E 18:56
PROVIDERS: Emergency Medicine; Internal Medicine; ADMIT Internal Medicine; ATTEND Internal Medicine
DX: I48.91 Unspecified atrial fibrillation (principal); E87.1 Hypo-osmolality and hyponatremia; E44.0 Moderate protein-calorie malnutrition; I48.0 Paroxysmal atrial fibrillation; I10 Essential (primary) hypertension; E11.65 Type 2 diabetes mellitus with hyperglycemia; E78.5 Hyperlipidemia, unspecified; R00.1 Bradycardia, unspecified; D64.9 Anemia, unspecified; Z85.46 Personal history of malignant neoplasm of prostate; Z92.3 Personal history of irradiation; Z79.01 Long term (current) use of anticoagulants; Z91.041 Radiographic dye allergy status; Z87.891 Personal history of nicotine dependence; Z82.49 Family history of ischemic heart disease and other diseases of the circulatory system; Z80.8 Family history of malignant neoplasm of other organs or systems; Z79.899 Other long term (current) drug therapy; Z68.22 Body mass index [BMI] 22.0-22.9, adult

== ENCOUNTER → 2021-11-18 | Outpatient (CLI) | payer MEDICARE, OTHER ==
[~2021-11-18] MED LIST changes: +METOPROLOL SUCC25 M2 PO
== END | disposition home or self-care (01) ==
LOC: RAD 14:44
PROVIDERS: ATTEND Family Medicine
DX: M17.0 Bilateral primary osteoarthritis of knee (principal); M25.461 Effusion, right knee; M25.462 Effusion, left knee

== ENCOUNTER → 2022-02-17 | Outpatient (CLI) | payer MEDICARE, OTHER ==
[2022-02-17 12:07] LABS: BUN 12 mg/dl (7-24); CHLORIDE 105 mmol/L (98-107); CHOLESTEROL 142 mg/dL (<200); CREATININE 0.72 mg/dL (0.70-1.30); LDL CHOLESTEROL 45 mg/dL (9-159); POTASSIUM 3.9 mmol/L (3.5-5.1); SODIUM 139 mmol/L (136-145); TRIGLYCERIDES 41 mg/dl (<150)
== END | disposition home or self-care (01) ==
LOC: LAB 11:23
PROVIDERS: ATTEND Family Medicine
DX: I10 Essential (primary) hypertension (principal); R73.9 Hyperglycemia, unspecified; E78.2 Mixed hyperlipidemia

== ENCOUNTER → 2022-02-24 | Outpatient (CLI) | payer MEDICARE, OTHER ==
[2022-02-24 11:47] LABS: BASO % 0.8 % (0.0-1.0); EOS # 0.1 10*3/uL (0.0-0.4); HEMATOCRIT 40.5 % (42.0-52.0); LYMPH # 0.8 10*3/uL (1.3-4.4); LYMPH % 15.9 % (27.0-41.0); MEAN CORPUSCULAR HGB 29.8 pg (27.0-31.0); MEAN CORPUSCULAR HGB CONC 33.8 g/dl (33.0-37.0); MEAN PLATELET VOLUME 9.7 fl (9.6-12.3); MONO # 0.5 10*3/uL (0.1-1.0); MONO % 10.9 % (3.0-9.0); NEUT # 3.5 10*3/uL (2.3-7.9); PLATELET COUNT AUTOMATED 199 10*3/uL (130-400); RED CELL DISTRI WIDTH 13.2 % (0-14.5)
[2022-02-24 11:57] LABS: BILIRUBIN Negative (Negative); BLOOD Trace-Lysed (Negative); CLARITY Clear (Clear); COLOR Yellow (Yellow); GLUCOSE Negative (Negative); KETONE Negative (Negative); LEUKO ESTERASE Negative (Negative); NITRITE Negative (Negative); PH 7.5 (4.5-8.0); SPECIFIC GRAVITY 1.015 (1.001-1.030)
[2022-02-24 12:02] LABS: ACT PARTIAL THROMBO TIME 29.2 SECONDS (20.0-32.1)
[2022-02-24 12:04] LABS: ALKALINE PHOSPHATASE 62 U/L (45-117); BUN 13 mg/dl (7-24); CHLORIDE 106 mmol/L (98-107); CREATININE 0.72 mg/dL (0.70-1.30); SGOT/AST 8 IU/L (3-35); SGPT/ALT 17 U/L (12-78); SODIUM 139 mmol/L (136-145); TOTAL PROTEIN 6.5 gm/dL (6.4-8.2)
[2022-02-24 15:01] LABS: WBC 0-2 wbc/hpf (0-5)
== END | disposition home or self-care (01) ==
LOC: LAB 11:09
PROVIDERS: ATTEND Orthopaedic Surgery
DX: Z01.818 Encounter for other preprocedural examination (principal); M17.11 Unilateral primary osteoarthritis, right knee; J44.9 Chronic obstructive pulmonary disease, unspecified; M23.91 Unspecified internal derangement of right knee

== ENCOUNTER → 2022-08-02 | Outpatient (CLI) | payer MEDICARE, OTHER | END | disposition home or self-care (01) | LOC: LAB 15:02 | PROVIDERS: ATTEND Family Medicine | DX: C61 Malignant neoplasm of prostate (principal) ==

== ENCOUNTER → 2022-12-07 | Outpatient (CLI) | payer MEDICARE, OTHER ==
[2022-12-07 11:33] LABS: BUN 11 mg/dl (9-23); CHLORIDE 102 mmol/L (98-107); CHOLESTEROL 136 mg/dL (<200); LDL CHOLESTEROL 56 mg/dL (9-159); POTASSIUM 3.9 mmol/L (3.4-5.1); THYROID STIM HORMONE (HS) 4.191 uIU/ml (0.550-4.780); TRIGLYCERIDES 47 mg/dl (<150)
== END | disposition home or self-care (01) ==
LOC: LAB 10:33
PROVIDERS: ATTEND Family Medicine
DX: I10 Essential (primary) hypertension (principal); E78.2 Mixed hyperlipidemia; E11.9 Type 2 diabetes mellitus without complications

== ENCOUNTER → 2023-01-24 | Day surgery (SDC) | payer MEDICARE, OTHER ==
[~2023-01-24] VITALS: Ht 177.8 cm; Wt 70.3 kg
[~2023-01-24] MED LIST changes: +FLOMAX0.4 MG PO; +HYDROCODONE-AC1 EAC1 PO; +ONDANSETRON HYDR4 M1 PO
[2023-01-24 08:30] VITALS: BP 142/70
[2023-01-24 09:54] VITALS: BP 100/47
[2023-01-24 10:09] VITALS: BP 105/51
[2023-01-24 10:24] VITALS: BP 121/69
[2023-01-24 10:39] VITALS: BP 108/65
== END | disposition home or self-care (01) ==
LOC: SDC 01-20 09:30
PROVIDERS: ATTEND Surgery
DX: C44.719 Basal cell carcinoma of skin of left lower limb, including hip (principal); I10 Essential (primary) hypertension; E11.9 Type 2 diabetes mellitus without complications; E78.00 Pure hypercholesterolemia, unspecified; Z85.46 Personal history of malignant neoplasm of prostate; I48.91 Unspecified atrial fibrillation; Z98.890 Other specified postprocedural states; Z79.899 Other long term (current) drug therapy

== ENCOUNTER → 2023-08-11 | Outpatient (CLI) | payer MEDICARE, OTHER ==
[2023-08-11 12:02] LABS: BUN 12 mg/dl (9-23); CHLORIDE 100 mmol/L (98-107); CHOLESTEROL 150 mg/dL (<200); LDL CHOLESTEROL 63 mg/dL (9-159); POTASSIUM 4.1 mmol/L (3.4-5.1); TRIGLYCERIDES 60 mg/dl (<150)
== END | disposition home or self-care (01) ==
LOC: LAB 10:45
PROVIDERS: ATTEND Family Medicine
DX: C61 Malignant neoplasm of prostate (principal); C62.00 Malignant neoplasm of unspecified undescended testis; E11.9 Type 2 diabetes mellitus without complications; I10 Essential (primary) hypertension; E78.2 Mixed hyperlipidemia